=== PATIENT | male | born 1995 | race Caucasian/White ===

== ENCOUNTER 2017-12-04 11:20 | Emergency (ER) | payer OTHER ==
[~2017-12-04] VITALS: Ht 175.3 cm; Wt 88.5 kg
[2017-12-04] MEDS ORDERED: IBUPROFEN 600600 M1 PO (13:36)
[2017-12-04] MEDS ORDERED: CYCLOBENZAPRINE5 MG PO (13:36)
[2017-12-04 13:50] VITALS: BP 104/84
== END 2017-12-04 13:51 | disposition home or self-care (01) ==
LOC: M.ERS 11:20
DX: S60.512A Abrasion of left hand, initial encounter (principal); S46.912A Strain of unspecified muscle, fascia and tendon at shoulder and upper arm level, left arm, initial encounter; S13.4XXA Sprain of ligaments of cervical spine, initial encounter; V49.40XA Driver injured in collision with unspecified motor vehicles in traffic accident, initial encounter; Y93.I9 Activity, other involving external motion; Y92.89 Other specified places as the place of occurrence of the external cause; Y99.8 Other external cause status